=== PATIENT | male | born 1995 | race American Indian/Alaskan Native ===

== ENCOUNTER 2020-05-13 19:11 | Emergency (ER) | payer SELFPAY ==
[2020-05-13] MEDS ORDERED: ALBUTEROL 2.5 MG/3 ML NEBU IH ONE (19:17)
[2020-05-13 19:34] VITALS: BP 141/85
--- NOTE | 2020-05-13 20:49 | Emergency Department Report ---
- General Chief complaint: Skin Rash Stated complaint: BRUISE ON BACK Time Seen by Provider: 05/13/20 20:41 Source: patient Mode of arrival: Ambulatory Limitations: No Limitations - History of Present Illness Initial comments: 24-year-old F [place] male presents emerged department complaining of a possible bite to his left upper back occurred around 3 AM and since that time has become more pruritic with some pain in the sensation of swelling since the onset he is tried no [id number] treatments for for any relief with the symptoms gets worse and with palpation. Ports no wheezing, no sore throat no chest pain palpitation MD complaint: rash, insect bite/sting Tetanus Up to Date: no Quality: aching Consistency: constant Improves with: none Worsens with: none Associated symptoms: denies other symptoms, itching - Related Data Previous Rx's Medication Instructions Recorded Last Taken Type Butalb/Acetamin/Caff 50-325-40 1 each PO Q4H PRN #14 tablet 01/05/14 Unknown Rx [Fioricet 50-325-40] Cyclobenzaprine [Flexeril 10 MG 10 mg PO TID PRN #14 tablet 02/06/14 Unknown Rx TAB] Ibuprofen [Motrin 800 MG tab] 800 mg PO Q8H PRN #20 tablet 02/06/14 Unknown Rx Famotidine [Pepcid] 20 mg PO BID #30 tablet 05/08/14 Unknown Rx Hyoscyamine Subl [Levsin Sl 0.125 0.125 mg PO Q6HR #20 tablet 05/08/14 Unknown Rx TAB] Promethazine [Phenergan] 25 mg PO Q6H PRN #30 tablet 05/08/14 Unknown Rx Starch 51%(Nf) [ANUSOL (nf)] 1 each [place] TID #20 supp.rect 05/08/14 Unknown Rx Benzonatate [Tessalon Perles] 100 mg PO Q8HR PRN #20 capsule 12/14/15 Unknown Rx HYDROcodone/APAP 5-325 [[place] 1 each PO Q6HR PRN #12 tablet 12/14/15 Unknown Rx 5-325 mg TAB] Rivaroxaban [Xarelto] 15 mg PO BID 21 Days tablet 12/14/15 Unknown Rx levoFLOXacin [Levaquin TAB] 500 mg PO QDAY #8 tablet 12/14/15 Unknown Rx Mometasone Furoate [Elocon] 1 applicatio TP QDAY #1 cream..g. 05/13/20 Unknown Rx Mupirocin [Bactroban 2%] 1 applic TP TID #1 tube 05/13/20 Unknown Rx predniSONE [Deltasone] 50 mg PO QDAY #5 tab 05/13/20 Unknown Rx Allergies Allergy/AdvReac Type Severity Reaction Status Date / Time Penicillins Allergy Hives Verified 01/05/14 09:13 Abscess Boil HPI - HPI Chief Complaint: Skin Rash Stated Complaint: BRUISE ON BACK Time Seen by Provider: 05/13/20 20:41 Home Medications: Previous Rx's Medication Instructions Recorded Last Taken Type Butalb/Acetamin/Caff 50-325-40 1 each PO Q4H PRN #14 tablet 01/05/14 Unknown Rx [Fioricet 50-325-40] Cyclobenzaprine [Flexeril 10 MG 10 mg PO TID PRN #14 tablet 02/06/14 Unknown Rx TAB] Ibuprofen [Motrin 800 MG tab] 800 mg PO Q8H PRN #20 tablet 02/06/14 Unknown Rx Famotidine [Pepcid] 20 mg PO BID #30 tablet 05/08/14 Unknown Rx Hyoscyamine Subl [Levsin Sl 0.125 0.125 mg PO Q6HR #20 tablet 05/08/14 Unknown Rx TAB] Promethazine [Phenergan] 25 mg PO Q6H PRN #30 tablet 05/08/14 Unknown Rx Starch 51%(Nf) [ANUSOL (nf)] 1 each [place] TID #20 supp.rect 05/08/14 Unknown Rx Benzonatate [Tessalon Perles] 100 mg PO Q8HR PRN #20 capsule 12/14/15 Unknown Rx HYDROcodone/APAP 5-325 [[place] 1 each PO Q6HR PRN #12 tablet 12/14/15 Unknown Rx 5-325 mg TAB] Rivaroxaban [Xarelto] 15 mg PO BID 21 Days tablet 12/14/15 Unknown Rx levoFLOXacin [Levaquin TAB] 500 mg PO QDAY #8 tablet 12/14/15 Unknown Rx Mometasone Furoate [Elocon] 1 applicatio TP QDAY #1 cream..g. 05/13/20 Unknown Rx Mupirocin [Bactroban 2%] 1 applic TP TID #1 tube 05/13/20 Unknown Rx predniSONE [Deltasone] 50 mg PO QDAY #5 tab 05/13/20 Unknown Rx Allergies/Adverse Reactions: Allergies Allergy/AdvReac Type Severity Reaction Status Date / Time Penicillins Allergy Hives Verified 01/05/14 09:13 ED Review of Systems ROS: Stated complaint: BRUISE ON BACK Other details as noted in HPI Comment: All other systems reviewed and negative ED Past Medical Hx - Past Medical History Previous Medical History?: Yes Additional medical history: PE - Surgical History Past Surgical History?: Yes Additional Surgical History: intest. surgery 2 y/o - Social History Smoking Status: Former Smoker Substance Use Type: None - Medications Home Medications: Home Medications Medication Instructions Recorded Confirmed Last Taken Type Butalb/Acetamin/Caff 50-325-40 1 each PO Q4H PRN #14 tablet 01/05/14 12/14/15 Unknown Rx [Fioricet 50-325-40] Cyclobenzaprine [Flexeril 10 MG 10 mg PO TID PRN #14 tablet 02/06/14 12/14/15 Unknown Rx TAB] Ibuprofen [Motrin 800 MG tab] 800 mg PO Q8H PRN #20 tablet 02/06/14 12/14/15 Unknown Rx Famotidine [Pepcid] 20 mg PO BID #30 tablet 05/08/14 12/14/15 Unknown Rx Hyoscyamine Subl [Levsin Sl 0.125 0.125 mg PO Q6HR #20 tablet 05/08/14 12/14/15 Unknown Rx TAB] Promethazine [Phenergan] 25 mg PO Q6H PRN #30 tablet 05/08/14 12/14/15 Unknown Rx Starch 51%(Nf) [ANUSOL (nf)] 1 each [place] TID #20 supp.rect 05/08/14 12/14/15 Unknown Rx Benzonatate [Tessalon Perles] 100 mg PO Q8HR PRN #20 capsule 12/14/15 Unknown Rx HYDROcodone/APAP 5-325 [[place] 1 each PO Q6HR PRN #12 tablet 12/14/15 Unknown Rx 5-325 mg TAB] Rivaroxaban [Xarelto] 15 mg PO BID 21 Days tablet 12/14/15 Unknown Rx levoFLOXacin [Levaquin TAB] 500 mg PO QDAY #8 tablet 12/14/15 Unknown Rx Mometasone Furoate [Elocon] 1 applicatio TP QDAY #1 cream..g. 05/13/20 Unknown Rx Mupirocin [Bactroban 2%] 1 applic TP TID #1 tube 05/13/20 Unknown Rx predniSONE [Deltasone] 50 mg PO QDAY #5 tab 05/13/20 Unknown Rx ED Physical Exam - General Limitations: No Limitations General appearance: alert, in no apparent distress - Head Head exam: Present: atraumatic, normocephalic - Eye Eye exam: Present: normal appearance - ENT ENT exam: Present: mucous membranes moist - Neck Neck exam: Present: normal inspection - Respiratory Respiratory exam: Present: normal lung sounds bilaterally. Absent: respiratory distress - Cardiovascular Cardiovascular Exam: Present: regular rate, normal rhythm. Absent: systolic murmur, diastolic murmur, rubs, gallop - GI/Abdominal GI/Abdominal exam: Present: soft, normal bowel sounds - Rectal Rectal exam: Present: deferred - Extremities Exam Extremities exam: Present: normal inspection - Back Exam Back exam: Present: normal inspection - Neurological Exam Neurological exam: Present: alert, oriented X3, CN II-XII intact - Psychiatric Psychiatric exam: Present: normal affect, normal mood - Skin Skin exam: Present: warm, erythema, urticaria. Absent: rash ED Course Vital Signs 05/13/20 19:31 Temperature 98.4 F Pulse Rate 97 H Respiratory 20 Rate Blood Pressure 141/85 O2 Sat by Pulse 100 Oximetry ED Medical Decision Making - Medical Decision Making [age]-year-old male female status post insect bite to the back now resulting in small hive area but no angioedema present. Also some increased redness likely some early evolution little early evolution of cellulitis plan treat him accordingly for his insect bite reaction and cover for infectious process as well. Advised when to return to the emergency department. Critical care attestation.: If time is entered above; I have spent that time in minutes in the direct care of this critically ill patient, excluding procedure time. ED Disposition Clinical Impression: Hives, Insect bite Disposition: DC-01 TO HOME OR SELFCARE Is pt being admited?: No Does the pt Need Aspirin: No Condition: Stable Instructions: Urticaria (ED), Insect Bite or Sting (ED) Prescriptions: Mupirocin [Bactroban 2%] 1 applic TP TID #1 tube predniSONE [Deltasone] 50 mg PO QDAY #5 tab Mometasone Furoate [Elocon] 1 applicatio TP QDAY #1 cream..g.
== END 2020-05-13 21:52 | disposition home or self-care (01) ==
LOC: ED 19:11
DX: S20.462A Insect bite (nonvenomous) of left back wall of thorax, initial encounter (principal); Z87.891 Personal history of nicotine dependence; Z79.899 Other long term (current) drug therapy; Z88.0 Allergy status to penicillin; W57.XXXA Bitten or stung by nonvenomous insect and other nonvenomous arthropods, initial encounter; Y93.89 Activity, other specified; Y92.89 Other specified places as the place of occurrence of the external cause; Y99.8 Other external cause status
CPT/HCPCS: 99282

== ENCOUNTER 2022-01-19 14:13 | Inpatient (IN) | payer SELFPAY ==
[2022-01-19] MEDS ORDERED: KETOROLAC 30 MG/1 ML INJ IV ONE (15:55)
[2022-01-19] MEDS ORDERED: ONDANSETRON 4 MG/2 ML INJ IV ONE (15:55)
[2022-01-19] MEDS ORDERED: MORPHINE 4 MG/1 ML INJ IV ONE (15:55)
[2022-01-19 16:25] LABS: Basophils # (Auto) 0.1 K/mm3 (0.0-0.1); Basophils % (Auto) 1.1 % (0.0-1.8); Eosinophils # (Auto) 0.1 K/mm3 (0.0-0.4); Eosinophils % (Auto) 2.1 % (0.0-4.3); Hemoglobin 15.4 gm/dl (11.8-15.2); Lymphocytes # (Auto) 1.6 K/mm3 (1.2-5.4); Lymphocytes % (Auto) 26.8 % (13.4-35.0); Mean Corpuscular HGB Conc 33 % (32-34); Mean Corpuscular Volume 89 fl (84-94); Monocytes # (Auto) 0.7 K/mm3 (0.0-0.8); Monocytes % (Auto) 11.6 % (0.0-7.3); Platelet Count 226 K/mm3 (140-440); Red Blood Count 5.15 M/mm3 (3.65-5.03); Red Cell Distribution Width 13.7 % (13.2-15.2)
--- NOTE | 2022-01-19 16:29 | Emergency Department Report ---
ED Chest Pain HPI - General Chief Complaint: Chest Pain Stated Complaint: CHEST AND LEG PAIN Time Seen by Provider: 01/19/22 15:24 Source: patient Mode of arrival: Wheelchair Limitations: No Limitations - History of Present Illness Initial Comments: 26-year-old male with a past medical history of multiple pulmonary emboli, DVT, and history of pulmonary infarction presents to the hospital complaining of right-sided chest pain and left calf pain for the last several days. He has been noncompliant with his Eliquis for the last 8 months. He complains of sharp right-sided chest pain worse with inspiration and dyspnea on exertion. Left calf pain is moderate intensity and worse with movement and palpation. Patient has been noncompliant with Eliquis and outpatient follow-up due to lack of insurance. 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 Severity scale (0 -10): 8 - Related Data Previous Rx's Medication Instructions Recorded Last Taken Type Butalb/Acetamin/Caff 50-325-40 1 each PO Q4H PRN #14 tablet 01/05/14 Unknown Rx [Fioricet 50-325-40] Cyclobenzaprine [Flexeril 10 MG 10 mg PO TID PRN #14 tablet 02/06/14 Unknown Rx TAB] Ibuprofen [Motrin 800 MG tab] 800 mg PO Q8H PRN #20 tablet 02/06/14 Unknown Rx Famotidine [Pepcid] 20 mg PO BID #30 tablet 05/08/14 Unknown Rx Hyoscyamine Subl [Levsin Sl 0.125 0.125 mg PO Q6HR #20 tablet 05/08/14 Unknown Rx TAB] Promethazine [Phenergan] 25 mg PO Q6H PRN #30 tablet 05/08/14 Unknown Rx Starch 51%(Nf) [ANUSOL (nf)] 1 each [place] TID #20 supp.rect 05/08/14 Unknown Rx Benzonatate [Tessalon Perles] 100 mg PO Q8HR PRN #20 capsule 12/14/15 Unknown Rx HYDROcodone/APAP 5-325 [[place] 1 each PO Q6HR PRN #12 tablet 12/14/15 Unknown Rx 5-325 mg TAB] Rivaroxaban [Xarelto] 15 mg PO BID 21 Days tablet 12/14/15 Unknown Rx levoFLOXacin [Levaquin TAB] 500 mg PO QDAY #8 tablet 12/14/15 Unknown Rx Mometasone Furoate [Elocon] 1 applicatio TP QDAY #1 cream..g. 05/13/20 Unknown Rx Mupirocin [Bactroban 2%] 1 applic TP TID #1 tube 05/13/20 Unknown Rx hydrOXYzine HCL [Atarax] 25 mg PO Q6HR PRN #14 tablet 05/13/20 Unknown Rx predniSONE [Deltasone] 50 mg PO QDAY #5 tab 05/13/20 Unknown Rx Allergies Allergy/AdvReac Type Severity Reaction Status Date / Time Penicillins Allergy Hives Verified 01/05/14 09:13 Heart Score - HEART Score History: Slightly suspicious EKG: Non-specific Age: < 45 Risk factors: No known risk factors Troponin: < normal limit HEART Score: 1 - EKG Read Time Time EKG Completed: 14:28 EKG Read Time: 14:28 ED Review of Systems ROS: Stated complaint: CHEST AND LEG PAIN Other details as noted in HPI Comment: All other systems reviewed and negative ED Past Medical Hx - Past Medical History Previous Medical History?: Yes Additional medical history: PE/DVT - Surgical History Additional Surgical History: intest. surgery 2 y/o - Social History Smoking Status: Never Smoker Substance Use Type: None - Medications Home Medications: Home Medications Medication Instructions Recorded Confirmed Last Taken Type Butalb/Acetamin/Caff 50-325-40 1 each PO Q4H PRN #14 tablet 01/05/14 12/14/15 Unknown Rx [Fioricet 50-325-40] Cyclobenzaprine [Flexeril 10 MG 10 mg PO TID PRN #14 tablet 02/06/14 12/14/15 Unknown Rx TAB] Ibuprofen [Motrin 800 MG tab] 800 mg PO Q8H PRN #20 tablet 02/06/14 12/14/15 Unknown Rx Famotidine [Pepcid] 20 mg PO BID #30 tablet 05/08/14 12/14/15 Unknown Rx Hyoscyamine Subl [Levsin Sl 0.125 0.125 mg PO Q6HR #20 tablet 05/08/14 12/14/15 Unknown Rx TAB] Promethazine [Phenergan] 25 mg PO Q6H PRN #30 tablet 05/08/14 12/14/15 Unknown Rx [place]arch 51%(Nf) [ANUSOL (nf)] 1 each [place] TID #20 supp.rect 05/08/14 12/14/15 Unknown Rx Benzonatate [Tessalon Perles] 100 mg PO Q8HR PRN #20 capsule 12/14/15 Unknown Rx HYDROcodone/APAP 5-325 [[place] 1 each PO Q6HR PRN #12 tablet 12/14/15 Unknown Rx 5-325 mg TAB] Rivaroxaban [Xarelto] 15 mg PO BID 21 Days tablet 12/14/15 Unknown Rx levoFLOXacin [Levaquin TAB] 500 mg PO QDAY #8 tablet 12/14/15 Unknown Rx Mometasone Furoate [Elocon] 1 applicatio TP QDAY #1 cream..g. 05/13/20 Unknown Rx Mupirocin [Bactroban 2%] 1 applic TP TID #1 tube 05/13/20 Unknown Rx hydrOXYzine HCL [Atarax] 25 mg PO Q6HR PRN #14 tablet 05/13/20 Unknown Rx predniSONE [Deltasone] 50 mg PO QDAY #5 tab 05/13/20 Unknown Rx ED Physical Exam - General Limitations: No Limitations - Other Other exam information: General: No acute distress Head: Atraumatic Eyes: normal appearance ENT: Moist mucous membranes Neck: Normal appearance, no midline tenderness Chest: Clear to auscultation bilaterally, chest wall nontender CV: Regular rate and rhythm Abdomen: Soft, normal bowel sounds, nontender, nondistended, no rebound or guarding Back: Normal inspection Extremity: Normal inspection, full range of motion, left calf tenderness Neuro: Alert O x 3, no facial asymmetry, speech clear, no gross motor sensory deficit Psych: Appropriate behavior Skin: No rash ED Course Vital Signs 01/19/22 01/19/22 01/19/22 14:20 16:18 16:48 Temperature 98.1 F Pulse Rate 93 H Respiratory 18 Rate Blood Pressure Blood Pressure 165/98 [Right] O2 Sat by Pulse 97 100 96 Oximetry 01/19/22 01/19/22 01/19/22 17:01 17:15 17:31 Temperature Pulse Rate 55 L 51 L Respiratory 11 L 11 L Rate Blood Pressure 155/89 155/89 119/73 Blood Pressure [Right] O2 Sat by Pulse 99 100 99 Oximetry 01/19/22 01/19/22 01/19/22 17:45 18:01 18:15 Temperature Pulse Rate 54 L 49 L 61 Respiratory 12 10 L 11 L Rate Blood Pressure 119/73 128/64 128/64 Blood Pressure [Right] O2 Sat by Pulse 100 100 100 Oximetry 01/19/22 01/19/22 01/19/22 18:31 18:45 18:46 Temperature Pulse Rate 49 L 51 L 67 Respiratory 15 16 12 Rate Blood Pressure 122/87 122/87 122/87 Blood Pressure [Right] O2 Sat by Pulse 100 99 100 Oximetry 01/19/22 01/19/22 01/19/22 19:12 19:15 19:31 Temperature Pulse Rate 53 L 50 L Respiratory 11 L 8 L Rate Blood Pressure 122/87 122/87 138/85 Blood Pressure [Right] O2 Sat by Pulse 98 99 99 Oximetry 01/19/22 01/19/22 01/19/22 19:45 20:01 20:15 Temperature Pulse Rate 77 50 L 49 L Respiratory 18 15 14 Rate Blood Pressure 138/85 132/92 132/92 Blood Pressure [Right] O2 Sat by Pulse 97 100 100 Oximetry 01/19/22 01/19/22 01/19/22 20:31 20:45 21:01 Temperature Pulse Rate 59 L 54 L 58 L Respiratory 12 16 18 Rate Blood Pressure 120/65 120/65 136/88 Blood Pressure [Right] O2 Sat by Pulse 100 100 100 Oximetry 01/19/22 01/19/22 01/19/22 21:15 21:31 21:45 Temperature Pulse Rate 60 55 L 63 Respiratory 14 17 12 Rate Blood Pressure 136/88 150/78 150/78 Blood Pressure [Right] O2 Sat by Pulse 100 Oximetry 01/19/22 01/19/22 01/19/22 22:01 22:15 22:31 Temperature Pulse Rate 55 L 53 L 55 L Respiratory 16 15 13 Rate Blood Pressure 150/78 150/78 150/78 Blood Pressure [Right] O2 Sat by Pulse Oximetry 01/19/22 01/19/22 01/19/22 22:45 23:01 23:15 Temperature Pulse Rate 57 L 52 L 48 L Respiratory 9 L 12 12 Rate Blood Pressure 150/78 150/78 150/78 Blood Pressure [Right] O2 Sat by Pulse Oximetry 01/19/22 01/19/22 01/20/22 23:31 23:45 00:01 Temperature Pulse Rate 51 L 54 L 63 Respiratory 11 L 17 16 Rate Blood Pressure 150/78 150/78 150/78 Blood Pressure [Right] O2 Sat by Pulse Oximetry 01/20/22 01/20/22 01/20/22 00:15 00:31 00:45 Temperature Pulse Rate 56 L 68 61 Respiratory 13 15 20 Rate Blood Pressure 150/78 150/78 150/78 Blood Pressure [Right] O2 Sat by Pulse Oximetry 01/20/22 01/20/22 01/20/22 01:01 01:15 01:31 Temperature Pulse Rate 58 L 72 58 L Respiratory 17 12 19 Rate Blood Pressure 150/78 150/78 150/78 Blood Pressure [Right] O2 Sat by Pulse Oximetry 01/20/22 01:45 Temperature Pulse Rate 84 Respiratory 20 Rate Blood Pressure 150/78 Blood Pressure [Right] O2 Sat by Pulse Oximetry MARK score - Mark Score Age > 65: (0) No Aspirin use within the Past 7 Days: (0) No 3 or more CAD Risk Factors: (0) No 2 or more Angina events in past 24 hrs: (0) No Known CAD with more than 50% Stenosis: (0) No Elevated Cardiac Markers: (0) No ST Deviation Greater than 0.5mm: (0) No MARK Score: 0 ED Medical Decision Making - Lab Data Result diagrams: 01/20/22 03:14 01/20/22 03:14 Lab Results 01/19/22 01/19/22 01/19/22 Range/Units 16:04 16:04 16:04 WBC 5.9 (4.5-11.0) K/mm3 RBC 5.15 H (3.65-5.03) M/mm3 Hgb 15.4 H (11.8-15.2) gm/dl Hct 46.0 H (35.5-45.6) % MCV 89 (84-94) fl MCH 30 (28-32) pg MCHC 33 (32-34) % RDW 13.7 (13.2-15.2) % Plt Count 226 (140-440) K/mm3 Lymph % (Auto) 26.8 (13.4-35.0) % [place] % (Auto) 11.6 H (0.0-7.3) % Eos % (Auto) 2.1 (0.0-4.3) % Baso % (Auto) 1.1 (0.0-1.8) % Lymph # (Auto) 1.6 (1.2-5.4) K/mm3 [place] # (Auto) 0.7 (0.0-0.8) K/mm3 Eos # (Auto) 0.1 (0.0-0.4) K/mm3 Baso # (Auto) 0.1 (0.0-0.1) K/mm3 Seg Neutrophils % 58.4 (40.0-70.0) % Seg Neutrophils # 3.5 (1.8-7.7) K/mm3 D-Dimer 1714.30 H (0-234) ng/mlDDU Sodium 142 (137-145) mmol/L Potassium 4.5 (3.6-5.0) mmol/L Chloride 106.2 (98-107) mmol/L Carbon Dioxide 26 (22-30) mmol/L Anion Gap 14 mmol/L BUN 10 (9-20) mg/dL Creatinine 0.9 (0.8-1.3) mg/dL Estimated GFR > 60 ml/min BUN/Creatinine Ratio 11 % Glucose 85 (75-100) mg/dL Calcium 10.0 (8.4-10.2) mg/dL Troponin T < 0.010 (0.00-0.029) ng/mL - EKG Data -: EKG Interpreted by [place] EKG shows normal: sinus rhythm, ST-T waves (No STEMI) Rate: normal (93) - Radiology Data Radiology results: report reviewed DUPLEX DOPPLER LOWER EXTREMITY VEINS, LEFT INDICATION / CLINICAL INFORMATION: left leg pain, hx of dvt. TECHNIQUE: Duplex doppler imaging was performed through the veins of the left lower extremity using venous compression and other maneuvers. COMPARISON: None available. FINDINGS: LEFT COMMON FEMORAL VEIN: Negative. LEFT FEMORAL VEIN: Acute DVT distal superficial femoral vein LEFT POPLITEAL VEIN: Acute thrombus. LEFT CALF VEINS: Acute thrombus. ADDITIONAL FINDINGS: None. IMPRESSION: 1. Acute DVT in the left distal superficial femoral vein into the left distal peroneal and distal posterior tibial veins. CTA CHEST WITH CONTRAST INDICATION / CLINICAL INFORMATION: chest pain hx of Pulmonary emboli. TECHNIQUE: Axial CT images were obtained through the chest after injection of IV contrast. 3 plane MIP and/or 3D reconstructions were produced. All CT scans at this location are performed using CT dose reduction for ALARA by means of automated exposure control. COMPARISON: None available. FINDINGS: There is filling defect within the right upper lung pulmonary arteries mild atelectasis in the lower lungs. No mediastinal or hilar adenopathy. ADDITIONAL FINDINGS: None. UPPER ABDOMEN: No acute findings. SKELETAL STRUCTURES: No significant osseous abnormality. IMPRESSION: 1. Filling defect in the right upper lung pulmonary artery consistent with PTE. 2. Mild lower lung atelectasis - Medical Decision Making 26 yo male with recurrent PE and DVT. tx with lovenox in ed to be admitted to the hospitalist - Differential Diagnosis Pulmonary embolism, pleuritic chest pain, dvt, muscle strain pneumothorax Critical Care Time: No Critical care attestation.: If time is entered above; I have spent that time in minutes in the direct care of this critically ill patient, excluding procedure time. ED Disposition Clinical Impression: Acute DVT (deep venous thrombosis), Pulmonary embolism, Noncompliance with medication regimen Disposition: ADMITTED INPATIENT Is pt being admited?: Yes Condition: Stable Time of Disposition: 21:44 (DR Pendleton)
[2022-01-19] MEDS ORDERED: ENOXAPARIN 100 MG/1 ML INJ SUB-Q ONE (16:37)
--- NOTE | 2022-01-19 16:50 | Vascular Lab Report ---
DUPLEX DOPPLER LOWER EXTREMITY VEINS, LEFT INDICATION / CLINICAL INFORMATION: left leg pain, hx of dvt. TECHNIQUE: Duplex doppler imaging was performed through the veins of the left lower extremity using venous compr ession and other maneuvers. COMPARISON: None available. FINDINGS: LEFT COMMON FEMORAL VEIN: Negative. LEFT FEMORAL VEIN: Acute DVT distal superficial femoral vein LEFT POPLITEAL VEIN: Acute thrombus. LEFT CALF VEINS: Acute thrombus. ADDITIONAL FINDINGS: None. IMPRESSION: 1. Acute DVT in the left distal superficial femoral vein into the left distal peroneal and distal pos terior tibial veins. Signer Name: Howard Terry MD Signed: 01/19/2022 4:46 PM Workstation Name: [facility]
[2022-01-19 18:01] LABS: BUN/Creatinine Ratio 11; Blood Urea Nitrogen 10 mg/dL (9-20); Hemolysis Index 18
[2022-01-19] MEDS ORDERED: oxyCODONE /ACETAMINOPHEN 5-325MG TAB PO ONE (18:02)
--- NOTE | 2022-01-19 19:18 | Cat Scan Report ---
CTA CHEST WITH CONTRAST INDICATION / CLINICAL INFORMATION: chest pain hx of Pulmonary emboli. TECHNIQUE: Axial CT images were obtained through the chest after injection of IV contrast. 3 plane HI P and/or 3D reconstructions were produced. All CT scans at this location are performed using CT dose reduction for ALARA by means of automated exposure control. COMPARISON: None available. FINDINGS: There is filling defect within the right upper lung pulmonary arteries mild atelectasis in the lower lungs. No mediastinal or hilar adenopathy. ADDITIONAL FINDINGS: None. UPPER ABDOMEN: No acute findings. SKELETAL STRUCTURES: No significant osseous abnormality. IMPRESSION: 1. Filling defect in the right upper lung pulmonary artery consistent with PTE. 2. Mild lower lung atelectasis CRITICAL RESULT: Time of Discovery (REGULATORY AFFAIRS ASSISTANT/CDT): 612 Time of Communication (REGULATORY AFFAIRS ASSISTANT/CDT): 612 Licensed Practitioner Receiving Report: Kenia Read-Back Performed: Yes. Signer Name: Yosef Hameed MD Signed: 01/19/2022 7:14 PM Workstation Name: [id number]
[2022-01-19] MEDS ORDERED: ONDANSETRON 4 MG/2 ML INJ IV PRN (21:52)
[2022-01-19] MEDS ORDERED: ALBUTEROL 2.5 MG/3 ML NEBU IH PRN (21:52)
[2022-01-19] MEDS ORDERED: ACETAMINOPHEN 325 MG TAB PO PRN (21:52)
[2022-01-19] MEDS ORDERED: PROMETHAZINE 25 MG TAB PO PRN (21:54)
[2022-01-19] MEDS ORDERED: CYCLOBENZAPRINE 10 MG TAB PO PRN (21:54)
[2022-01-19] MEDS: FAMOTIDINE 20 MG TAB PO SCH (22:00)
[2022-01-19] MEDS ORDERED: NON-FORMULARY EACH (Rivaroxaban 15 MG Tablet) PO SCH (22:00)
--- NOTE | 2022-01-19 22:00 | History and Physical Report ---
History of Present Illness Date of examination: 01/19/22 Date of admission: 01/19/22 Chief complaint: Chest pain History of present illness: 26-year-old male with a past medical history of multiple pulmonary emboli, DVT, and history of pulmonary infarction presents to the hospital complaining of right-sided chest pain and left calf pain for the last several days. He has been noncompliant with his Eliquis for the last 8 months. He complains of sharp right-sided chest pain worse with inspiration and dyspnea on exertion. Left calf pain is moderate intensity and worse with movement and palpation. Patient has been noncompliant with Eliquis and outpatient follow-up due to lack of insurance. 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 We are going to admit the patient we will put the patient on Xarelto 15 mg p.o. twice daily, patient already get a dose of Lovenox in the emergency room Past History Past Medical History: DVT, other (PE) Past Surgical History: Other (Intestinal surgery 3 years ago) Social history: no significant social history Family history: no significant family history Medications and Allergies Allergies Allergy/AdvReac Type Severity Reaction Status Date / Time Penicillins Allergy Hives Verified 01/05/14 09:13 Home Medications Medication Instructions Recorded Confirmed Last Taken Type Butalb/Acetamin/Caff 50-325-40 1 each PO Q4H PRN #14 tablet 01/05/14 12/14/15 Unknown Rx [Fioricet 50-325-40] Cyclobenzaprine [Flexeril 10 MG 10 mg PO TID PRN #14 tablet 02/06/14 12/14/15 Un known Rx TAB] Ibuprofen [Motrin 800 MG tab] 800 mg PO Q8H PRN #20 tablet 02/06/14 12/14/15 U nknown Rx Famotidine [Pepcid] 20 mg PO BID #30 tablet 05/08/14 12/14/15 Unknown Rx Hyoscyamine Subl [Levsin Sl 0.125 0.125 mg PO Q6HR #20 tablet 05/08/14 12/14/15 Unknown Rx TAB] Promethazine [Phenergan] 25 mg PO Q6H PRN #30 tablet 05/08/14 12/14/15 Unknown Rx Starch 51%(Nf) [ANUSOL (nf)] 1 each HI TID #20 supp.rect 05/08/14 12/14/15 Unknown Rx Benzonatate [Tessalon Perles] 100 mg PO Q8HR PRN #20 capsule 12/14/15 Unknown Rx HYDROcodone/APAP 5-325 [[place] 1 each PO Q6HR PRN #12 tablet 12/14/15 Unknown Rx 5-325 mg TAB] Rivaroxaban [Xarelto] 15 mg PO BID 21 Days tablet 12/14/15 Unknown Rx levoFLOXacin [Levaquin TAB] 500 mg PO QDAY #8 tablet 12/14/15 Unknown Rx Mometasone Furoate [Elocon] 1 applicatio TP QDAY #1 cream..g. 05/13/20 Unknown Rx Mupirocin [Bactroban 2%] 1 applic TP TID #1 tube 05/13/20 Unknown Rx hydrOXYzine HCL [Atarax] 25 mg PO Q6HR PRN #14 tablet 05/13/20 Unknown Rx predniSONE [Deltasone] 50 mg PO QDAY #5 tab 05/13/20 Unknown Rx Active Meds: Active Medications Acetaminophen (Acetaminophen 325 Mg Tab) 650 mg PO Q4H PRN PRN Reason: Pain MILD(1-3)/Fever >100.5/QUEEN Hydrocodone Bitart/Acetaminophen (Hydrocodone/Acetaminophen 5-325 Mg Tab) 1 each PO Q6HR PRN PRN Reason: PAIN Albuterol (Albuterol 2.5 Mg/3 Ml Nebu) 2.5 mg IH Q3HRT PRN PRN Reason: Shortness Of Breath Albuterol/Ipratropium (Ipratropium/Albuterol Sulfate 3 Ml Ampul.Neb) 1 ampul IH Q6HRT ROWDY Cyclobenzaprine HCl (Cyclobenzaprine 10 Mg Tab) 10 mg PO TID PRN PRN Reason: Muscle Spasm Famotidine (Famotidine 20 Mg Tab) 20 mg PO BID ROWDY Hydromorphone HCl (Hydromorphone 1 Mg/1 Ml Inj) 0.5 mg IV Q3H PRN PRN Reason: Pain , Severe (7-10) Morphine Sulfate (Morphine 2 Mg/1 Ml Inj) 2 mg IV Q4H PRN PRN Reason: Pain, Moderate (4-6) Ondansetron HCl (Ondansetron 4 Mg/2 Ml Inj) 4 mg IV Q8H PRN PRN Reason: Nausea And Vomiting Sodium Chloride (Sodium Chloride 0.9% 10 Ml Flush Syringe) 10 ml IV BID ROWDY Sodium Chloride (Sodium Chloride 0.9% 10 Ml Flush Syringe) 10 ml IV PRN PRN PRN Reason: LINE FLUSH Review of Systems All systems: negative Cardiovascular: chest pain, shortness of breath, dyspnea on exertion Respiratory: shortness of breath, dyspnea on exertion Exam - Constitutional Vitals: Temp Pulse Resp BP Pulse Ox 98.1 F 51 L 16 122/87 99 01/19/22 14:20 01/19/22 18:45 01/19/22 18:45 01/19/22 18:45 01/19/22 18:45 General appearance: Present: no acute distress, well-nourished - EENT Eyes: Present: PERRL ENT: hearing intact, clear oral mucosa - Neck Neck: Present: supple, normal ROM - Respiratory Respiratory effort: normal Respiratory: bilateral: diminished - Cardiovascular Heart Sounds: Present: S1 & S2. Absent: rub, click - Extremities Extremities: pulses symmetrical, No edema Peripheral Pulses: within normal limits - Abdominal General gastrointestinal: Present: soft, non-tender, non-distended, normal bowel sounds Male genitourinary: Present: normal - Integumentary Integumentary: Present: clear, warm, dry - Musculoskeletal Musculoskeletal: gait normal, strength equal bilaterally - Psychiatric Psychiatric: appropriate mood/affect, intact judgment & insight - Neurologic Neurologic: CNII-XII intact, moves all extremities HEART Score - HEART Score EKG: Non-specific Age: < 45 Risk factors: No known risk factors Troponin: Troponin T < 0.010 ng/mL (0.00-0.029) 01/19/22 16:04 Troponin: < normal limit Results - Labs CBC & Chem 7: 01/19/22 16:04 01/19/22 16:04 Labs: Laboratory Last Values WBC 5.9 K/mm3 (4.5-11.0) 01/19/22 16:04 RBC 5.15 M/mm3 (3.65-5.03) H 01/19/22 16:04 Hgb 15.4 gm/dl (11.8-15.2) H 01/19/22 16:04 Hct 46.0 % (35.5-45.6) H 01/19/22 16:04 MCV 89 fl (84-94) 01/19/22 16:04 MCH 30 pg (28-32) 01/19/22 16:04 MCHC 33 % (32-34) 01/19/22 16:04 RDW 13.7 % (13.2-15.2) 01/19/22 16:04 Plt Count 226 K/mm3 (140-440) 01/19/22 16:04 Lymph % (Auto) 26.8 % (13.4-35.0) 01/19/22 16:04 [place] % (Auto) 11.6 % (0.0-7.3) H 01/19/22 16:04 Eos % (Auto) 2.1 % (0.0-4.3) 01/19/22 16:04 Baso % (Auto) 1.1 % (0.0-1.8) 01/19/22 16:04 Lymph # (Auto) 1.6 K/mm3 (1.2-5.4) 01/19/22 16:04 [place] # (Auto) 0.7 K/mm3 (0.0-0.8) 01/19/22 16:04 Eos # (Auto) 0.1 K/mm3 (0.0-0.4) 01/19/22 16:04 Baso # (Auto) 0.1 K/mm3 (0.0-0.1) 01/19/22 16:04 Seg Neutrophils % 58.4 % (40.0-70.0) 01/19/22 16:04 Seg Neutrophils # 3.5 K/mm3 (1.8-7.7) 01/19/22 16:04 D-Dimer 1714.30 ng/mlDDU (0-234) H 01/19/22 16:04 Sodium 142 mmol/L (137-145) 01/19/22 16:04 Potassium 4.5 mmol/L (3.6-5.0) 01/19/22 16:04 Chloride 106.2 mmol/L (98-107) 01/19/22 16:04 Carbon Dioxide 26 mmol/L (22-30) 01/19/22 16:04 Anion Gap 14 mmol/L 01/19/22 16:04 BUN 10 mg/dL (9-20) 01/19/22 16:04 Creatinine 0.9 mg/dL (0.8-1.3) 01/19/22 16:04 Estimated GFR > 60 ml/min 01/19/22 16:04 BUN/Creatinine Ratio 11 % 01/19/22 16:04 Glucose 85 mg/dL (75-100) 01/19/22 16:04 Calcium 10.0 mg/dL (8.4-10.2) 01/19/22 16:04 Troponin T < 0.010 ng/mL (0.00-0.029) 01/19/22 16:04 - Imaging and Cardiology CT scan - chest: report reviewed Venous US: report reviewed Assessment and Plan VTE prophylaxis?: Chemical Plan of care discussed with patient/family: Yes - Patient Problems (1) Pulmonary embolism Current Visit: Yes Status: Acute Plan to address problem: Admit the patient to the medical floor. Oxygen via nasal cannula 3 L/min. DuoNeb via nebulizer every 4 hours. Albuterol via nebulizer every 4 hours as needed. Xarelto 15 mg p.o. twice daily. Patient get 1 dose of Lovenox 1 mg/kg subcu x1 dose. We counseled the patient regarding compliance with the medication. Echocardiogram. (2) Acute DVT (deep venous thrombosis) Current Visit: Yes Status: Acute Plan to address problem: Xarelto 15 mg p.o. twice daily. Patient get 1 dose of Lovenox 1 mg/kg subcu x1 dose. We counseled the patient regarding compliance with the medication. Echocardiogram. (3) Noncompliance with medication regimen Current Visit: Yes Status: Acute Plan to address problem: Counseled the patient regarding compliance with the medication. (4) DVT prophylaxis Current Visit: Yes Status: Acute Plan to address problem: Xarelto 15 mg p.o. twice daily for DVT prophylaxis. Pepcid 20 mg p.o. twice daily for GI prophylaxis. Patient is a full code
[2022-01-20] MEDS: HYDROcodone/ACETAMINOPHEN 5-325 MG TAB PO PRN ×2 (01:30→09:15)
[2022-01-20] MEDS: IPRATROPIUM/ALBUTEROL SULFATE 3 ML AMPUL.NEB IH SCH ×4 (02:00→21:30)
[2022-01-20 04:02] LABS: BUN/Creatinine Ratio 12; Blood Urea Nitrogen 12 mg/dL (9-20); Calcium 9.3 mg/dL (8.4-10.2); Hemolysis Index 7
[2022-01-20 04:04] LABS: Basophils % (Auto) 0.8 % (0.0-1.8); Eosinophils # (Auto) 0.3 K/mm3 (0.0-0.4); Eosinophils % (Auto) 4.9 % (0.0-4.3); Hematocrit 42.6 % (35.5-45.6); Hemoglobin 14.4 gm/dl (11.8-15.2); Lymphocytes # (Auto) 2.2 K/mm3 (1.2-5.4); Lymphocytes % (Auto) 36.2 % (13.4-35.0); Mean Corpuscular HGB Conc 34 % (32-34); Mean Corpuscular Volume 89 fl (84-94); Monocytes # (Auto) 0.6 K/mm3 (0.0-0.8); Monocytes % (Auto) 10.2 % (0.0-7.3); Platelet Count 211 K/mm3 (140-440); Red Blood Count 4.81 M/mm3 (3.65-5.03); Red Cell Distribution Width 13.6 % (13.2-15.2)
[2022-01-20] MEDS: RIVAROXABAN 15 MG TAB PO SCH ×2 (09:15→17:37)
[2022-01-20] MEDS: FAMOTIDINE 20 MG TAB PO SCH ×2 (09:15→21:41)
[2022-01-20] MEDS: MUPIROCIN 2% OINT 22 GM TP SCH ×3 (09:15→21:42)
--- NOTE | 2022-01-20 09:46 | Electrocardiograph Report ---
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
[2022-01-20] MEDS ORDERED: predniSONE 50 MG TAB PO SCH (10:00)
--- NOTE | 2022-01-20 13:33 | Progress Note ---
Assessment and Plan Assessment and plan: -- Right-sided acute pulmonary embolism Xarelto 15 mg p.o. twice daily. Transition to Eliquis from tomorrow morning dose. Elevate the limb, supportive care Check O2 sats, start oxygen 2 L if O2 sats are less than 90% -- Left lower extremity acute DVT (deep venous thrombosis) Xarelto 15 mg p.o. twice daily. Transition to Eliquis per protocol from tomorrow morning Supportive care --noncompliance with medication regimen Counseled the patient regarding compliance with the medication. Counseling done strongly advised to comply with medications diet and follow-up visits Risks and consequences of not following instruction were explained to the patient Life-threatening PE and DVT may be possible if patient is noncompliant with anticoagulation They had numerous questions answered all of them, patient, his mother and other family member verbalized understanding And the patient is committed to compliance this time --obesity BMI 32.2 Counseling done, advised diet modification, exercise as tolerated and weight reduction When medically stable Preventive counseling done; --DVT prophylaxis Patient already has DVT , continue therapeutic anticoagulation We will closely monitor the patient and adjust management as needed Plan of care reviewed with the patient and the family members at the bedside Transition to Eliquis from tomorrow History Interval history: I have seen and examined the patient at the bedside Patient's chart and medications reviewed Patient with recurrent PEs and DVTs was supposed to be on lifelong anticoagulation But is noncompliant for a few months because of social issues Patient was admitted with PE and lower extremity DVT Saturating well on room air, vital signs stable Patient feels better Hospitalist Physical - Constitutional Vitals: Temp Pulse Resp BP Pulse Ox 98.1 F 62 18 141/84 96 01/20/22 12:01 01/20/22 12:01 01/20/22 13:26 01/20/22 12:01 01/20/22 13:26 General appearance: Present: no acute distress, well-nourished - EENT Eyes: Present: PERRL, EOM intact - Neck Neck: Present: supple, normal ROM - Respiratory Respiratory effort: normal Respiratory: bilateral: diminished, negative: rales, rhonchi, wheezing - Cardiovascular Rhythm: regular Heart Sounds: Present: S1 & S2 - Extremities Extremities: no ischemia, No edema - Abdominal General gastrointestinal: soft, non-tender, non-distended, normal bowel sounds - Integumentary Integumentary: Present: clear, warm - Psychiatric Psychiatric: appropriate mood/affect, cooperative - Neurologic Neurologic: CNII-XII intact, moves all extremities HEART Score - HEART Score EKG: Non-specific Age: < 45 Risk factors: No known risk factors Troponin: Troponin T < 0.010 ng/mL (0.00-0.029) 01/19/22 16:04 Troponin: < normal limit Results - Labs CBC & Chem 7: 01/20/22 03:14 01/20/22 03:14 Labs: Laboratory Last Values WBC 6.0 K/mm3 (4.5-11.0) 01/20/22 03:14 RBC 4.81 M/mm3 (3.65-5.03) 01/20/22 03:14 Hgb 14.4 gm/dl (11.8-15.2) 01/20/22 03:14 Hct 42.6 % (35.5-45.6) 01/20/22 03:14 MCV 89 fl (84-94) 01/20/22 03:14 MCH 30 pg (28-32) 01/20/22 03:14 MCHC 34 % (32-34) 01/20/22 03:14 RDW 13.6 % (13.2-15.2) 01/20/22 03:14 Plt Count 211 K/mm3 (140-440) 01/20/22 03:14 Lymph % (Auto) 36.2 % (13.4-35.0) H 01/20/22 03:14 [place] % (Auto) 10.2 % (0.0-7.3) H 01/20/22 03:14 Eos % (Auto) 4.9 % (0.0-4.3) H 01/20/22 03:14 Baso % (Auto) 0.8 % (0.0-1.8) 01/20/22 03:14 Lymph # (Auto) 2.2 K/mm3 (1.2-5.4) 01/20/22 03:14 [place] # (Auto) 0.6 K/mm3 (0.0-0.8) 01/20/22 03:14 Eos # (Auto) 0.3 K/mm3 (0.0-0.4) 01/20/22 03:14 Baso # (Auto) 0.0 K/mm3 (0.0-0.1) 01/20/22 03:14 Seg Neutrophils % 47.9 % (40.0-70.0) 01/20/22 03:14 Seg Neutrophils # 2.9 K/mm3 (1.8-7.7) 01/20/22 03:14 D-Dimer 1714.30 ng/mlDDU (0-234) H 01/19/22 16:04 Sodium 136 mmol/L (137-145) L 01/20/22 03:14 Potassium 4.0 mmol/L (3.6-5.0) 01/20/22 03:14 Chloride 102.2 mmol/L (98-107) 01/20/22 03:14 Carbon Dioxide 23 mmol/L (22-30) 01/20/22 03:14 Anion Gap 15 mmol/L 01/20/22 03:14 BUN 12 mg/dL (9-20) 01/20/22 03:14 Creatinine 1.0 mg/dL (0.8-1.3) 01/20/22 03:14 Estimated GFR > 60 ml/min 01/20/22 03:14 BUN/Creatinine Ratio 12 % 01/20/22 03:14 Glucose 87 mg/dL (75-100) 01/20/22 03:14 Calcium 9.3 mg/dL (8.4-10.2) 01/20/22 03:14 Troponin T < 0.010 ng/mL (0.00-0.029) 01/19/22 16:04 Cifuentes/IV: Voiding Method Toilet Active Medications - Current Medications Current Medications: Generic Name Dose Route Start Last Admin Trade Name Freq PRN Reason Stop Dose Admin Acetaminophen 650 mg 01/19/22 21:52 Acetaminophen 325 Mg Tab PO Q4H PRN Pain MILD(1-3)/Fever >100.5/QUEEN Hydrocodone Bitart/Acetaminophen 1 each 01/19/22 21:54 01/20/22 09:15 Hydrocodone/Acetaminophen 5-325 Mg Tab PO 1 each Q6HR PRN Administration Pain, Moderate (4-6) Albuterol 2.5 mg 01/19/22 21:52 Albuterol 2.5 Mg/3 Ml Nebu IH Q3HRT PRN Shortness Of Breath Albuterol/Ipratropium 1 ampul 01/20/22 02:00 01/20/22 12:31 Ipratropium/Albuterol Sulfate 3 Ml Ampul.Neb IH Not Given Q6HRT ROWDY Cyclobenzaprine HCl 10 mg 01/19/22 21:54 01/20/22 12:46 Cyclobenzaprine 10 Mg Tab PO 10 mg TID PRN Administration Muscle Spasm Famotidine 20 mg 01/19/22 22:00 01/20/22 09:15 Famotidine 20 Mg Tab PO 20 mg BID ROWDY Administration Hydromorphone HCl 0.5 mg 01/19/22 21:52 Hydromorphone 1 Mg/1 Ml Inj IV Q3H PRN Pain , Severe (7-10) Morphine Sulfate 2 mg 01/19/22 21:52 Morphine 2 Mg/1 Ml Inj IV Q4H PRN Pain, Moderate (4-6) Mupirocin 1 applic 01/20/22 08:00 01/20/22 09:15 Mupirocin 2% Oint 22 Gm TP Not Given TID ROWDY Ondansetron HCl 4 mg 01/19/22 21:52 Ondansetron 4 Mg/2 Ml Inj IV Q8H PRN Nausea And Vomiting Promethazine HCl 25 mg 01/19/22 21:54 Promethazine 25 Mg Tab PO Q6H PRN Nausea Rivaroxaban 15 mg 01/20/22 08:00 01/20/22 09:15 Rivaroxaban 15 Mg Tab PO 15 mg BIDDIAB ROWDY Administration Sodium Chloride 10 ml 01/19/22 22:00 01/20/22 09:16 Sodium Chloride 0.9% 10 Ml Flush Syringe IV 10 ml BID ROWDY Administration Sodium Chloride 10 ml 01/19/22 21:52 Sodium Chloride 0.9% 10 Ml Flush Syringe IV PRN PRN LINE FLUSH
[2022-01-20] MEDS: HYDROmorphone 1 MG/1 ML INJ IV PRN ×2 (18:08→20:16)
[2022-01-20 23:44] LABS: Hematocrit 45.1 % (35.5-45.6); Hemoglobin 15.2 gm/dl (11.8-15.2); Mean Corpuscular HGB Conc 34 % (32-34); Mean Corpuscular Volume 89 fl (84-94); Platelet Count 217 K/mm3 (140-440); Red Blood Count 5.09 M/mm3 (3.65-5.03); Red Cell Distribution Width 13.4 % (13.2-15.2)
[2022-01-20 23:53] LABS: INR 1.71 (0.87-1.13); Partial Thromboplastin Time 33.4 Sec. (24.2-36.6)
[2022-01-21] MEDS: HYDROmorphone 1 MG/1 ML INJ IV PRN (00:58)
[2022-01-21] MEDS ORDERED: HYDROmorphone 1 MG/1 ML INJ IV PRN (02:06)
--- NOTE | 2022-01-21 02:08 | Progress Note ---
Assessment and Plan Assessment and plan: - Right-sided acute pulmonary embolism Xarelto 15 mg p.o. twice daily. Transitioned to Eliquis today Elevate the limb, supportive care Room air O2 sat evaluation prior to discharge -- Left lower extremity acute DVT (deep venous thrombosis) Xarelto 15 mg p.o. twice daily. Transition to Eliquis per protocol from tomorrow morning Supportive care --noncompliance with medication regimen Counseled the patient regarding compliance with the medication. Counseling done strongly advised to comply with medications diet and follow-up visits Risks and consequences of not following instruction were explained to the patient Life-threatening PE and DVT may be possible if patient is noncompliant with anticoagulation They had numerous questions answered all of them, patient, his mother and other family member verbalized understanding And the patient is committed to compliance this time --obesity BMI 32.2 Counseling done, advised diet modification, exercise as tolerated and weight reduction When medically stable Preventive counseling done; --DVT prophylaxis Patient already has DVT , continue therapeutic anticoagulation We will closely monitor the patient and adjust management as needed Plan of care reviewed with the patient and the family members at the bedside Transition to Eliquis today Advance care planning; I discussed patient's condition, patient's Reports discussed with patient and family Treatment plan discussed with patient and the family at the bedside Discharge planning discussed with the patient and family They had numerous questions I answered all of them They verbalized understanding Advance care plan +32 minutes Disposition; possible discharge home on Eliquis tomorrow if stable History Interval history: I have seen and examined the patient at bedside Patient's chart medications reviewed No new events reported by nursing staff Patient feels better, denies chest pain or shortness of breath Vital signs reviewed We will transition to Eliquis from today Hospitalist Physical - Constitutional Vitals: Temp Pulse Resp BP Pulse Ox 97.2 F L 51 L 16 139/79 100 01/21/22 00:35 01/21/22 00:35 01/21/22 01:00 01/21/22 00:35 01/21/22 01:00 General appearance: Present: no acute distress, well-nourished - EENT Eyes: Present: PERRL, EOM intact - Neck Neck: Present: supple, normal ROM - Respiratory Respiratory effort: normal Respiratory: bilateral: diminished, negative: rales, rhonchi, wheezing - Cardiovascular Rhythm: regular Heart Sounds: Present: S1 & S2 - Extremities Extremities: no ischemia, No edema - Abdominal General gastrointestinal: soft, non-tender, non-distended, normal bowel sounds - Integumentary Integumentary: Present: clear, warm - Psychiatric Psychiatric: appropriate mood/affect, cooperative - Neurologic Neurologic: CNII-XII intact, moves all extremities HEART Score - HEART Score EKG: Non-specific Age: < 45 Risk factors: No known risk factors Troponin: Troponin T < 0.010 ng/mL (0.00-0.029) 01/19/22 16:04 Troponin: < normal limit Results - Labs CBC & Chem 7: 01/20/22 23:06 01/20/22 23:06 Labs: Laboratory Last Values WBC 6.0 K/mm3 (4.5-11.0) 01/20/22 23:06 RBC 5.09 M/mm3 (3.65-5.03) H 01/20/22 23:06 Hgb 15.2 gm/dl (11.8-15.2) 01/20/22 23:06 Hct 45.1 % (35.5-45.6) 01/20/22 23:06 MCV 89 fl (84-94) 01/20/22 23:06 MCH 30 pg (28-32) 01/20/22 23:06 MCHC 34 % (32-34) 01/20/22 23:06 RDW 13.4 % (13.2-15.2) 01/20/22 23:06 Plt Count 217 K/mm3 (140-440) 01/20/22 23:06 Lymph % (Auto) 36.2 % (13.4-35.0) H 01/20/22 03:14 [place] % (Auto) 10.2 % (0.0-7.3) H 01/20/22 03:14 Eos % (Auto) 4.9 % (0.0-4.3) H 01/20/22 03:14 Baso % (Auto) 0.8 % (0.0-1.8) 01/20/22 03:14 Lymph # (Auto) 2.2 K/mm3 (1.2-5.4) 01/20/22 03:14 [place] # (Auto) 0.6 K/mm3 (0.0-0.8) 01/20/22 03:14 Eos # (Auto) 0.3 K/mm3 (0.0-0.4) 01/20/22 03:14 Baso # (Auto) 0.0 K/mm3 (0.0-0.1) 01/20/22 03:14 Seg Neutrophils % 47.9 % (40.0-70.0) 01/20/22 03:14 Seg Neutrophils # 2.9 K/mm3 (1.8-7.7) 01/20/22 03:14 PT 22.2 Sec. (12.2-14.9) H 01/20/22 23:06 INR 1.71 (0.87-1.13) H 01/20/22 23:06 APTT 33.4 Sec. (24.2-36.6) 01/20/22 23:06 D-Dimer 1714.30 ng/mlDDU (0-234) H 01/19/22 16:04 Sodium 136 mmol/L (137-145) L 01/20/22 03:14 Potassium 4.0 mmol/L (3.6-5.0) 01/20/22 03:14 Chloride 102.2 mmol/L (98-107) 01/20/22 03:14 Carbon Dioxide 23 mmol/L (22-30) 01/20/22 03:14 Anion Gap 15 mmol/L 01/20/22 03:14 BUN 12 mg/dL (9-20) 01/20/22 03:14 Creatinine 1.1 mg/dL (0.8-1.3) 01/20/22 23:06 Estimated GFR > 60 ml/min 01/20/22 23:06 BUN/Creatinine Ratio 12 % 01/20/22 03:14 Glucose 87 mg/dL (75-100) 01/20/22 03:14 Calcium 9.3 mg/dL (8.4-10.2) 01/20/22 03:14 Troponin T < 0.010 ng/mL (0.00-0.029) 01/19/22 16:04 Cifuentes/IV: Voiding Method Urinal Active Medications - Current Medications Current Medications: Generic Name Dose Route Start Last Admin Trade Name Freq PRN Reason Stop Dose Admin Acetaminophen 650 mg 01/19/22 21:52 Acetaminophen 325 Mg Tab PO Q4H PRN Pain MILD(1-3)/Fever >100.5/QUENE Hydrocodone Bitart/Acetaminophen 1 each 01/19/22 21:54 01/20/22 09:15 Hydrocodone/Acetaminophen 5-325 Mg Tab PO 1 each Q6HR PRN Administration Pain, Moderate (4-6) Albuterol 2.5 mg 01/19/22 21:52 Albuterol 2.5 Mg/3 Ml Nebu IH Q3HRT PRN Shortness Of Breath Albuterol/Ipratropium 1 ampul 01/20/22 02:00 01/20/22 21:30 Ipratropium/Albuterol Sulfate 3 Ml Ampul.Neb IH Not Given Q6HRT ROWDY Apixaban 10 mg 01/21/22 10:00 Apixaban 5 Mg Tab PO 01/27/22 22:01 Q12HR [facility] Protocol Apixaban 5 mg 01/28/22 10:00 Apixaban 5 Mg Tab PO Q12HR [facility] Protocol Cyclobenzaprine HCl 10 mg 01/19/22 21:54 01/20/22 12:46 Cyclobenzaprine 10 Mg Tab PO 10 mg TID PRN Administration Muscle Spasm Famotidine 20 mg 01/19/22 22:00 01/20/22 21:41 Famotidine 20 Mg Tab PO 20 mg BID ROWDY Administration Hydromorphone HCl 0.5 mg 01/21/22 02:06 Hydromorphone 1 Mg/1 Ml Inj IV Q6H PRN Pain , Severe (7-10) Morphine Sulfate 2 mg 01/19/22 21:52 Morphine 2 Mg/1 Ml Inj IV Q4H PRN Pain, Moderate (4-6) Mupirocin 1 applic 01/20/22 08:00 01/20/22 21:42 Mupirocin 2% Oint 22 Gm TP 1 applic TID ROWDY Administration Ondansetron HCl 4 mg 01/19/22 21:52 Ondansetron 4 Mg/2 Ml Inj IV Q8H PRN Nausea And Vomiting Promethazine HCl 25 mg 01/19/22 21:54 Promethazine 25 Mg Tab PO Q6H PRN Nausea Sodium Chloride 10 ml 01/19/22 22:00 01/20/22 21:40 Sodium Chloride 0.9% 10 Ml Flush Syringe IV 10 ml BID ROWDY Administration Sodium Chloride 10 ml 01/19/22 21:52 Sodium Chloride 0.9% 10 Ml Flush Syringe IV PRN PRN LINE FLUSH
[2022-01-21] MEDS: IPRATROPIUM/ALBUTEROL SULFATE 3 ML AMPUL.NEB IH SCH ×4 (04:28→21:30)
[2022-01-21] MEDS: HYDROcodone/ACETAMINOPHEN 5-325 MG TAB PO PRN ×2 (09:36→21:39)
[2022-01-21] MEDS: APIXABAN 5 MG TAB PO SCH ×2 (09:36→21:38)
[2022-01-21] MEDS: FAMOTIDINE 20 MG TAB PO SCH ×2 (09:37→21:38)
[2022-01-21] MEDS: MUPIROCIN 2% OINT 22 GM TP SCH ×3 (09:38→21:39)
--- NOTE | 2022-01-21 18:11 | Discharge Summary ---
Providers - Providers Date of Admission: 01/19/22 21:52 Date of discharge: 01/22/22 Attending physician: RABIA WOOD Primary care physician: CLIN NURSE Hospitalization Reason for admission: Chest pain and shortness of breath Condition: Stable Pertinent studies: CTA chest filling defect in the right upper lung pulmonary artery consistent w ith PT, mild lower lung atelectasis Lower extremity venous Doppler; acute DVT in the left distal superficial femoral vein into the left distal peroneal and distal posterior tibial veins Hospital course: Very pleasant 26-year-old male patient with significant past medical history of recurrent PE and DVT advised to be on lifelong anticoagulation noncompliant with medications 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 On initial evaluation in ED D-dimers were very high subsequently patient underwent CTA chest which showed right PE and lower extremity venous Doppler showed left DVT patient was admitted and started on heparin drip later transitioned to Xarelto and the next day will transition to Eliquis after discussing with the patient the medication the mode of action risks and consequences and complications patient verbalized understanding and agreed with the treatment plan. Patient is hemodynamically stable saturating well on room air Today patient is comfortable no new complaints denies any chest pain or shortness of breath vital signs reviewed stable Physical examination prior to discharge did not show any new changes Patient is hemodynamically and clinically stable for discharge on Eliquis per protocol and strongly advised to follow-up with primary care physician in 1 week and private roll bucker in 2 weeks. Patient counseled again the importance of adhering to the treatment plan and follow-up visits. He verbalized understanding Stable at discharge Discharge diagnosis: - Right-sided acute pulmonary embolism Xarelto 15 mg p.o. twice daily. Transitioned to Eliquis today Elevate the limb, supportive care Room air O2 sat evaluation prior to discharge -- Left lower extremity acute DVT (deep venous thrombosis) Xarelto 15 mg p.o. twice daily. Transition to Eliquis per protocol from tomorrow morning Supportive care --noncompliance with medication regimen Counseled the patient regarding compliance with the medication. Counseling done strongly advised to comply with medications diet and follow-up visits Risks and consequences of not following instruction were explained to the patient Life-threatening PE and DVT may be possible if patient is noncompliant with anticoagulation They had numerous questions answered all of them, patient, his mother and other family member verbalized understanding And the patient is committed to compliance this time --obesity BMI 32.2 Counseling done, advised diet modification, exercise as tolerated and weight reduction When medically stable Preventive counseling done; --DVT prophylaxis Patient already has DVT , continue therapeutic anticoagulation We will closely monitor the patient and adjust management as needed Plan of care reviewed with the patient and the family members at the bedside Transition to [facility] today Advance care planning; I discussed patient's condition, patient's Reports discussed with patient and family Treatment plan discussed with patient and the family at the bedside Discharge planning discussed with the patient and family They had numerous questions I answered all of them They verbalized understanding Advance care plan +32 minutes Disposition; possible discharge home on [facility] tomorrow if stable Disposition: HOME / SELF CARE / HOMELESS Final Discharge Diagnosis (Prints w/discharge instructions): Right-sided acute PE. Left lower extremity acute DVT. Medical noncompliance with medications. Obesity BMI 32.2 Time spent for discharge: 35 MIN Core Measure Documentation - Palliative Care Palliative Care/ Comfort Measures: Not Applicable - Core Measures Any of the following diagnoses?: DVT/PE - VTE Discharge Requirements Deep Vein Thrombosis/Pulmonary Embolism Present on Admission: Yes Has pt received <5 days of overlap therapy or INR<2.0: No (Not indicated, patient is on Eliquis) Anticoagulant overlap therapy prescribed at discharge: No Contraindication No Overlap Therapy order at DC: Not Indicated (Patient is on Eliquis) Exam - Constitutional Vitals: Temp Pulse Resp BP Pulse Ox 98.2 F 58 L 20 138/76 99 01/21/22 16:00 01/21/22 16:00 01/21/22 16:00 01/21/22 16:00 01/21/22 16:00 General appearance: Present: no acute distress, well-nourished, obese - EENT Eyes: Present: PERRL, EOM intact - Neck Neck: Present: supple, normal ROM - Respiratory Respiratory effort: normal Respiratory: bilateral: diminished, negative: rales, rhonchi, wheezing - Cardiovascular Rhythm: regular Heart Sounds: Present: S1 & S2 - Extremities Extremities: no ischemia, No edema - Abdominal General gastrointestinal: Present: soft, non-tender, non-distended, normal bowel sounds - Integumentary Integumentary: Present: clear, warm - Musculoskeletal Musculoskeletal: strength equal bilaterally - Psychiatric Psychiatric: appropriate mood/affect, cooperative - Neurologic Neurologic: moves all extremities Plan Activity: no restrictions Diet: regular Additional Instructions: If you have worsening symptoms contact MD or go to the nearest emergency room as needed. If you notice any bleeding stop the blood thinner/Eliquis and contact MD immediately or go to the nearest emergency room. Strongly advised to comply with medications mainly Eliquis, follow-up with private roll bucker in 1 to 2 weeks. Advised to follow with primary care physician in 1 week. Advised diet modification, exercise as tolerated and weight reduction. New medically stable Follow up with: PRIMARY CARE, [Primary Care Provider] - 7 Days MONIQUE DENNY MD [Staff Physician] - 14 Days Forms: Work/School Release Form Prescriptions: Apixaban [Eliquis] 2 tab PO Q12HR #24 tablet Apixaban [Eliquis] 5 mg PO Q12HR #60 tablet HYDROcodone/APAP 5-325 [[place] 5-325 mg TAB] 1 each PO Q6HR PRN #12 tablet PRN Reason: Pain Famotidine [Pepcid] 20 mg PO BID #30 tablet Albuterol Mdi (or & Nicu Only) [ProAir HFA Inhaler] 2 puff IH QID PRN #8.5 gram PRN Reason: Shortness Of Breath
[2022-01-21] MEDS: MORPHINE 2 MG/1 ML INJ IV PRN (18:20)
[2022-01-22] MEDS: MORPHINE 2 MG/1 ML INJ IV PRN (01:44)
[2022-01-22] MEDS: IPRATROPIUM/ALBUTEROL SULFATE 3 ML AMPUL.NEB IH SCH (03:10)
[2022-01-22] MEDS: HYDROcodone/ACETAMINOPHEN 5-325 MG TAB PO PRN ×2 (04:02→11:22)
[2022-01-22 05:48] LABS: Hematocrit 43.6 % (35.5-45.6); Hemoglobin 14.8 gm/dl (11.8-15.2); Mean Corpuscular HGB Conc 34 % (32-34); Mean Corpuscular Volume 88 fl (84-94); Platelet Count 230 K/mm3 (140-440); Red Blood Count 4.93 M/mm3 (3.65-5.03); Red Cell Distribution Width 13.8 % (13.2-15.2)
[2022-01-22] MEDS ORDERED: IPRATROPIUM/ALBUTEROL SULFATE 3 ML AMPUL.NEB IH SCH (08:00)
[2022-01-22] MEDS: MUPIROCIN 2% OINT 22 GM TP SCH (08:50)
[2022-01-22] MEDS: FAMOTIDINE 20 MG TAB PO SCH (09:53)
[2022-01-22] MEDS: APIXABAN 5 MG TAB PO SCH (09:53)
[2022-01-22 11:54] VITALS: BP 157/100
--- NOTE | 2022-01-23 13:04 | Event Note ---
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. I called [facility] pharmacy at [phone] at 12;52 today and discussed with the pharmacist who reviewed the prescription and informed me that she has no questions or clarifications for me and that she would talk to the patient regarding Eliquis cards and the process.
[2022-01-28] MEDS ORDERED: APIXABAN 5 MG TAB PO SCH (10:00)
== END 2022-01-22 15:15 | disposition home or self-care (01) | DRG 299 ==
LOC: ED 14:13 → 3A 21:52 → 4A 01-20 00:30
PROVIDERS: ADMIT Hospitalist; ATTEND Internal Medicine
DX: I82.4Z2 Acute embolism and thrombosis of unspecified deep veins of left distal lower extremity (principal); I26.99 Other pulmonary embolism without acute cor pulmonale; Z91.14 Patient's other noncompliance with medication regimen; Z88.0 Allergy status to penicillin; E66.9 Obesity, unspecified; Z68.32 Body mass index [BMI] 32.0-32.9, adult
CPT/HCPCS: 31720; 36415; 71275; 80048; 82565; 84484; 85025; 85027; 85379; 85610; 85730; 87641; 93005; 94640; 96372; 96374; 96375; 99285; G0378; J1170; J1650; J1885; J2270; J2405; Q9967